=== PATIENT | female | born 1975 | race Caucasian/White ===

== ENCOUNTER 2016-06-03 15:57 | Emergency (ER) | payer OTHER ==
[2016-06-03] MEDS ORDERED: IPRATROPIUM-ALBUTEROL 3 ML NEB INHALATION STA (16:54)
--- NOTE | 2016-06-03 17:08 | XR ---
EXAMINATION TYPE: XR chest 2V DATE OF EXAM: 06/03/2016 5:00 PM COMPARISON: 07/17/2015 HISTORY: Cough TECHNIQUE: Frontal and lateral views of the chest are obtained. FINDINGS: Heart and mediastinum are normal. Lungs are clear. Diaphragm is normal. Bony thorax is int act. IMPRESSION: Normal chest. No change.
--- NOTE | 2016-06-03 17:21 | ED ---
URI HPI - General Chief Complaint: Upper Respiratory Infection Stated Complaint: COPD Time Seen by Provider: 06/03/16 16:48 Source: patient, RN notes reviewed Mode of arrival: ambulatory Limitations: no limitations - History of Present Illness Initial Comments: 40-year-old female presented emergency department for cough and congestion. Patient has known COPD continues to smoke heavily. Patient states that she's been having worsening cough. Patient states that it is exacerbated by her smoking. Patient denies any chest pain or palpitations. Patient states she has inhalers and nebulizer but she has not been using her nebulizer. Patient denies any known fever or chills. Denies any sinus congestion, sore throat. Patient states that she's had no sick contacts. Patient offers no complaints. - Related Data Home Medications Medication Instructions Recorded Confirmed Albuterol Nebulized [Ventolin 2.5 mg INHALATION RT-TID PRN 08/06/13 06/03/16 Nebulized] Ipratropium [place] [Atrovent Hfa] 2 puff INHALATION RT-QID PRN 06/03/16 Previous Rx's Medication Instructions Recorded Albuterol Nebulized [Ventolin 2.5 mg INHALATION Q4H PRN #25 nebu 06/03/16 Nebulized] Azithromycin [Zithromax Z-pack] 0 mg PO DIRECTED #1 pack 06/03/16 methylPREDNISolone [Medrol Dose 4 mg PO DIRECTED #1 pack 06/03/16 Pack] Allergies Allergy/AdvReac Type Severity Reaction Status Date / Time sulfamethoxazole Allergy Unknown Verified 06/03/16 17:12 [From Bactrim] Childhood trimethoprim [From Bactrim] Allergy Unknown Verified 06/03/16 17:12 Childhood Review of Systems ROS Statement: Those systems with pertinent positive or pertinent negative responses have been documented in the HPI. ROS Other: All systems not noted in ROS Statement are negative. Past Medical History Past Medical History: COPD Additional Past Medical History / Comment(s): bipolar, sciatica, arthritis History of Any Multi-Drug Resistant Organisms: None Reported Past Surgical History: Bladder Surgery, Orthopedic Surgery Past Psychological History: Bipolar, Depression Smoking Status: Current every day smoker Past Alcohol Use History: Occasional Past Drug Use History: Marijuana General Exam Limitations: no limitations General appearance: alert, in no apparent distress Head exam: Present: atraumatic, normocephalic, normal inspection Eye exam: Present: normal appearance, PERRL, EOMI. Absent: scleral icterus, conjunctival injection, periorbital swelling ENT exam: Present: normal exam, normal oropharynx, mucous membranes moist, TM's normal bilaterally, normal external ear exam Neck exam: Present: normal inspection, full ROM. Absent: tenderness, meningismus, lymphadenopathy Respiratory exam: Present: wheezes. Absent: normal lung sounds bilaterally, respiratory distress, rales, rhonchi, stridor Cardiovascular Exam: Present: regular rate, normal rhythm, normal heart sounds. Absent: systolic murmur, diastolic murmur, rubs, gallop, clicks Course Vital Signs 06/03/16 06/03/16 16:44 17:13 Temperature 97.9 F Pulse Rate 87 88 Respiratory 20 Rate Blood Pressure 135/81 O2 Sat by Pulse 99 Oximetry Medical Decision Making - Medical Decision Making 40-year-old female presented emergency department for cough and congestion. Patient has COPD. Patient was treated with azithromycin this time, steroids. She was advised to quit smoking counseled in detail greater than 3 minutes and she really advised to continue helping all treatments at home. Return parameters were discussed. Disposition Clinical Impression: COPD exacerbation Disposition: HOME SELF-CARE Condition: Stable Instructions: COPD (Chronic Obstructive Pulmonary Disease) (ED) Additional Instructions: Please return to the Emergency Department if symptoms worsen or any other concerns. Prescriptions: Albuterol Nebulized [Ventolin Nebulized] 2.5 mg INHALATION Q4H PRN #25 nebu PRN Reason: difficulty in breathing Azithromycin [Zithromax Z-pack] 0 mg PO DIRECTED #1 pack methylPREDNISolone [Medrol Dose Pack] 4 mg PO DIRECTED #1 pack Time of Disposition: 17:20
[2016-06-03 17:43] VITALS: BP 161/74; PULSE 100; RESP 16; TEMP 97.2
== END 2016-06-03 17:42 | disposition home or self-care (01) ==
LOC: EC 15:57
DX: J44.1 Chronic obstructive pulmonary disease with (acute) exacerbation (principal); F17.200 Nicotine dependence, unspecified, uncomplicated; Z88.2 Allergy status to sulfonamides
CPT/HCPCS: 71020; 94640; 99283

== ENCOUNTER → 2017-05-21 | Outpatient (CLI) | payer OTHER ==
--- NOTE | 2017-05-21 14:09 | US ---
EXAMINATION TYPE: US pelvic complete DATE OF EXAM: 05/21/2017 COMPARISON: NONE CLINICAL HISTORY: N92.0 Menorrhagia. Pelvic pain. TECHNIQUE: . Transabdominal sonographic images of the pelvis were acquired. Patient declined the tr ansvaginal ultrasound at this time Date of LMP: 2 weeks ago EXAM MEASUREMENTS: Uterus: 9.1 x 4.0 x 6.0 cm Endometrial Stripe: 1.1 cm Right Ovary: Not visualized on this exam due to overlying bowel gas Left Ovary: Not visualized due to overlying bowel gas 1. Uterus: Anteverted No obvious abnormality is visualized, however extremely limited due to overl delmy bowel gas. Patient declined transvaginal imaging at this time. 2. Endometrium: wnl as visualized 3. Right Ovary: Obscured by overlying bowel gas 4. Left Ovary: Obscured by overlying bowel gas 5. Bilateral Adnexa: wnl 6. Posterior cul-de-sac: wnl IMPRESSION: Endometrial thickness is within normal limits for a premenopausal female. Uterus is also unremarkable in the transabdominal images. Ovaries are nonvisualized and patient declined a transvagi nal ultrasound.
== END | disposition home or self-care (01) ==
LOC: RADUSWWP 13:42
PROVIDERS: ATTEND Internal Medicine
DX: N92.0 Excessive and frequent menstruation with regular cycle (principal)
CPT/HCPCS: 76856

== ENCOUNTER → 2017-11-20 | Outpatient (CLI) | payer OTHER | END | disposition home or self-care (01) | LOC: RADMRIMAIN 12:10 | PROVIDERS: ATTEND Psychiatry & Neurology Pain Medicine | DX: Z53.9 Procedure and treatment not carried out, unspecified reason (principal) ==

== ENCOUNTER → 2020-04-11 | Outpatient (CLI) | payer OTHER ==
[2020-04-11 22:11] LABS: Cyclic Citrull Pep IgG Unit <0.5 U/mL; Cyclic Citrullinated Pep IgG NEGATIVE (NEGATIVE)
== END | disposition home or self-care (01) ==
LOC: LABWHC1 14:03
PROVIDERS: ATTEND Internal Medicine
DX: G89.4 Chronic pain syndrome (principal)
CPT/HCPCS: 36415; 85652; 86038; 86200; 86431

== ENCOUNTER 2021-12-31 10:44 | Day surgery (SDC) | payer OTHER ==
[2021-12-26 16:15] VITALS: BMI 47.4
[~2021-12-31 10:44] MED LIST: ceFAZolin 3 GM in SODIUM CHLORIDE 0.9% 100 ML IVPB PRN
[2021-12-31 11:21] VITALS: TEMP 97.1
[2021-12-31] MEDS ORDERED: LACTATED RINGERS 1,000 ML IV ONE ×2 (11:35→14:33)
[2021-12-31] MEDS ORDERED: LIDOCAINE 1% (10MG/ML) FOR IV START INTRADERMA ONE (11:36)
[2021-12-31] MEDS ORDERED: ONDANSETRON 4 MG/2 ML VIAL ONE ×2 (11:40→16:12)
[2021-12-31] MEDS ORDERED: ONDANSETRON 4 MG/2 ML VIAL IVP ONE ×2 (11:43→16:00)
[2021-12-31] MEDS ORDERED: DEXAMETHASONE SOD PHOSPHATE 4 MG/ML 1 ML VIAL IV ONE (11:44)
[2021-12-31] MEDS ORDERED: MIDAZOLAM 2 MG/2 ML VIAL IVP ONE (11:49)
[2021-12-31] MEDS ORDERED: fentaNYL (PF) 50 MCG/ML 2 ML AMP IVP ONE (11:49)
--- NOTE | 2021-12-31 11:59 | P.ANPRN ---
Procedure Note - Anesthesia - Nerve Block Performed Left Supraclavicular Single Time Out Performed: Yes Date of Procedure: 12/31/21 Procedure Start Time: 11:48 Procedure Stop Time: 11:56 Location of Patient: PreOp Sedation Type: Sedate with meaningful contact maintained Preparation: Sterile Prep Position: Supine Needle Types: Pajunk Needle Gauge: 21 Ultrasound used to visualize needle placement: Yes Ultrasound used to observe medication spread: Yes Injectate: 0.5% Ropivacaine (see comment for volume) (25 ml +4 mg Dexamethasone) Blood Aspirated: No Pain Paresthesia on Injection Noted: No Resistance on Injection: Normal Image Stored and Saved: Yes Events: Uneventful and Well Tolerated
[2021-12-31] MEDS ORDERED: PROPOFOL 10 MG/ML 20 ML VIAL IV ONE (13:12)
[2021-12-31] MEDS ORDERED: SUCCINYLCHOLINE CHLORIDE 200 MG/10 ML VIAL IV ONE (13:12)
[2021-12-31] MEDS ORDERED: ROCURONIUM 10 MG/ML (5 ML VIAL) IV ONE (13:12)
[2021-12-31] MEDS ORDERED: fentaNYL (PF) 50 MCG/ML 50 ML VIAL ONE (13:12)
[2021-12-31] MEDS ORDERED: ROPIVACAINE 5 MG/ML 30 ML VIAL ONE (13:12)
[2021-12-31] MEDS ORDERED: DEXAMETHASONE SOD PHOSPHATE 4 MG/ML 1 ML VIAL ONE (13:12)
[2021-12-31] MEDS ORDERED: LIDOCAINE 2% INJ 20 MG/ML (2 ML VIAL) ONE (13:12)
[2021-12-31] MEDS ORDERED: MIDAZOLAM 2 MG/2 ML VIAL ONE (13:12)
[2021-12-31] MEDS ORDERED: LIDOCAINE 1% INJ 10MG/ML (5 ML VIAL-PF) SQ ONE (13:59)
[2021-12-31] MEDS ORDERED: methylPREDNISolone ACETATE 40 MG/ML 1 ML VIAL MISCELLANE ONE (14:01)
[2021-12-31] MEDS ORDERED: GELATIN SPONGE,ABSORB (SMALL) 1 EACH SPONGE MISCELLANE ONE (14:07)
[2021-12-31 15:37] VITALS: RESP 20
[2021-12-31 16:10] VITALS: BP 129/85; PULSE 90
== END 2021-12-31 16:43 | disposition home or self-care (01) ==
LOC: OR 10:44
PROVIDERS: ATTEND Orthopaedic Surgery Hand Surgery
DX: G89.18 Other acute postprocedural pain (principal); J45.909 Unspecified asthma, uncomplicated; M19.90 Unspecified osteoarthritis, unspecified site; E66.9 Obesity, unspecified; Z68.42 Body mass index [BMI] 45.0-49.9, adult; Z88.2 Allergy status to sulfonamides
CPT/HCPCS: 81025; 64415; 76942; J2250; J0330; J1030; J1100; J3010 ×2; J0690; J2405; J2001 ×2; J2795; J2704

== ENCOUNTER → 2022-05-28 | Outpatient (CLI) | payer OTHER ==
--- NOTE | 2022-05-30 07:55 | MM ---
Reason for Exam: Screening (asymptomatic). Baseline mammogram. Patient History: Menarche at age 12. First Full-Term at age 15. Premenopausal. Maternal grandmother had breast cancer at or over age 50. Mother had ovarian cancer at or over age 50. Last menstrual period: 05/22/2022 Risk Values: Melody 5 year model risk: 0.6%. Prior Study Comparison: Patient's first Mammogram. No prior studies available for comparison. Tissue Density: There are scattered fibroglandular densities. Findings: Analyzed By CAD. Pattern appears symmetrical. No suspicious groups of microcalcifications, spiculated or lobular masses, architectural distortion or other secondary signs of malignancy are mammographically apparent.Pattern appears symmetrical. There is a nodule within the upper outer aspect right breast measuring 1.9 x 1.3 cm located 12 cm from the nipple. Overall Assessment: Incomplete: need additional imaging evaluation, BI-RAD 0 Management: Diagnostic Breast Ultrasound of the right breast. A negative mammogram report should not preclude additional follow up of suspicious palpable abnormalities. Patient should continue monthly self breast exam. A clinical breast exam by your physician is recommended on an annual basis and results should be correlated with mammographic findings. Electronically signed and approved by: Des Allen D.O. Radiologis
== END | disposition home or self-care (01) ==
LOC: RADMAMWWP 13:19
PROVIDERS: ATTEND Family Medicine
DX: Z12.31 Encounter for screening mammogram for malignant neoplasm of breast (principal); Z80.3 Family history of malignant neoplasm of breast
CPT/HCPCS: 77063; 77067

== ENCOUNTER → 2022-06-18 | Outpatient (CLI) | payer OTHER ==
--- NOTE | 2022-06-18 14:05 | USB ---
Reason for Exam: Additional evaluation requested from abnormal screening. Patient History: Menarche at age 12. First Full-Term at age 15. Premenopausal. Maternal grandmother had breast cancer at or over age 50. Mother had ovarian cancer at or over age 50. Risk Values: Melody 5 year model risk: 0.6%. NCI Lifetime model risk: 6.8%. Technique: Method: Targeted. Patient Position: Supine. Prior Study Comparison: 05/28/2022 Bilateral MG 3D screening mammo w/cad, [facility]. Findings: The upper outer quadrant of the right breast and the axilla of the right breast were scanned. Targeted ultrasound shows 1.6 x 0.7 x 1.3 cm benign lymph node in the right breast 10:00 position 13 cm distance from nipple believed to correspond to mammogram abnormality. Overall Assessment: Benign, BI-RAD 2 Management: Screening Mammogram of both breasts in 1 year. Return to routine follow-up. Results were given to the patient verbally at the time of exam. Electronically signed and approved by: Camilo Knight M.D.
== END | disposition home or self-care (01) ==
LOC: RADUSWWP 13:24
PROVIDERS: ATTEND Family Medicine
DX: R92.8 Other abnormal and inconclusive findings on diagnostic imaging of breast (principal); Z80.3 Family history of malignant neoplasm of breast

== ENCOUNTER → 2022-11-20 | Outpatient (CLI) | payer OTHER ==
--- NOTE | 2022-11-20 19:06 | CT ---
EXAMINATION TYPE: CT cervical spine wo con CT DLP: 720.2 mGycm, Automated exposure control for dose reduction was used. DATE OF EXAM: 11/20/2022 3:23 PM COMPARISON: None. CLINICAL INDICATION:Female, 47 years old with history of N92.0 EXCESSIVE AND FREQUENT MENSTR M54.50 , M54.12; PHH, limited range of motion and chronic neck pain x 5 years TECHNIQUE: Axial CT images from the skull base to the inferior aspect of T2 we obtained without intra venous contrast. Coronal and sagittal reformatted images were also reviewed. Contrast used: mL of , (if blank None) Oral contrast used: (if blank None) FINDINGS: Fracture: None. Osseous structures: Minimal degenerative disc disease changes with endplate spurring and disc osteoph yte complex's. Vertebral alignment: Alignment within normal limits. Spinal canal/Neural Foramina: No evidence of significant spinal canal narrowing. No evidence for sign ificant neural foraminal stenosis. Neck soft tissues: Prevertebral soft tissues are within normal limits. Other: The airway is patent. The lung apices are clear. IMPRESSION: 1. No evidence of cervical spine fracture. 2. Minimal multilevel degenerative disc disease.
--- NOTE | 2022-11-20 19:08 | CT ---
EXAMINATION TYPE: CT lumbar spine wo con CT DLP: 1350.3 mGycm, Automated exposure control for dose reduction was used. DATE OF EXAM: 11/20/2022 3:23 PM COMPARISON: . CLINICAL INDICATION:Female, 47 years old with history of N92.0 EXCESSIVE AND FREQUENT MENSTR M54.50 , M54.12; PHH, chronic back pain that radiates down sides x 5 years TECHNIQUE: Multiple axial images were obtained from the midportion of T11 through the sacroiliac akshat nts. Soft tissue and bone windows in coronal and sagittal planes were obtained and reviewed. Contrast used: mL of , none. Oral contrast used: none. FINDINGS: Alignment: There are 5 lumbar type vertebral bodies within normal alignment. Bone: No evidence of fracture is identified. Scattered mild osteophyte formation with disc space shona rowing worse at L5-S1. Facet joint arthropathy seen throughout the spine worse at L5-S1. Discs: T12-L1: No spinal canal or neural foraminal stenosis is identified. L1-L2: No spinal canal or neural foraminal stenosis is identified. L2-L3: No spinal canal or neural foraminal stenosis is identified. L3-L4: No spinal canal or neural foraminal stenosis is identified. L4-L5: Facet joint arthropathy and disc bulging result with mild spinal canal stenosis and moderate b ilateral neural foraminal stenosis. L5-S1: Facet joint arthropathy and disc bulging result without significant spinal canal stenosis and moderate bilateral neural foraminal stenosis. Other: None IMPRESSION: 1. No evidence for spinal fracture. 2. Mild degeneration changes throughout the spine worse at L5-S1 with moderate neural foraminal steno sis.
--- NOTE | 2022-11-20 19:47 | US ---
EXAMINATION TYPE: US pelvis complete transvag DATE OF EXAM: 11/20/2022 COMPARISON: NONE CLINICAL INDICATION: Female, 47 years old with history of N92.0 EXCESSIVE AND FREQUENT MENSTR; Irregu lar menses. LMP was 3 weeks long with clots TECHNIQUE: Transvaginal (TV) and Transabdominal (TA) . Transabdominal sonographic images of the pel vis were acquired. Transvaginal sonographic images were medically necessary to better assess the fol lowing anatomy: ovaries Date of LMP: August 2022 EXAM MEASUREMENTS: Uterus: 8.4 x 5.4 x 8.2 cm Endometrial Stripe: 0.5 cm Right Ovary: unable to visualize Left Ovary: unable to visualize 1. Uterus: Anteverted Fibroids noted, largest = 5.4 x 4.6 x 4.8cm. possible pedunculated fibroid = 2.7 x 2.7 x 3.2cm 2. Endometrium: appears wnl 3. Right Ovary: Obscured by overlying bowel gas 4. Left Ovary: Obscured by overlying bowel gas 5. Bilateral Adnexa: appears wnl 6. Posterior cul-de-sac: wnl IMPRESSION: 1. Uterine fibroids as discussed above.
== END | disposition home or self-care (01) ==
LOC: RADCTMAIN 14:52
PROVIDERS: ATTEND Family Medicine
DX: M50.10 Cervical disc disorder with radiculopathy, unspecified cervical region (principal); M51.17 Intervertebral disc disorders with radiculopathy, lumbosacral region; M99.73 Connective tissue and disc stenosis of intervertebral foramina of lumbar region; D25.9 Leiomyoma of uterus, unspecified; N92.0 Excessive and frequent menstruation with regular cycle
CPT/HCPCS: 72125; 72131; 76830; 76856

== ENCOUNTER → 2023-03-04 | Outpatient (CLI) | payer OTHER ==
--- NOTE | 2023-03-04 14:42 | XR ---
EXAMINATION TYPE: XR chest 2V DATE OF EXAM: 03/04/2023 COMPARISON: 06/03/2016 INDICATION: COPD, asthma TECHNIQUE: Frontal and lateral views of the chest are obtained. FINDINGS: The heart size is normal. The pulmonary vasculature is normal. The lungs are clear. IMPRESSION: 1. No acute pulmonary process.
== END ==
LOC: CPPFTMAIN 12:44
PROVIDERS: ATTEND Family Medicine
DX: J44.89 Other specified chronic obstructive pulmonary disease (principal); J45.998 Other asthma; M12.9 Arthropathy, unspecified; D72.829 Elevated white blood cell count, unspecified; F17.200 Nicotine dependence, unspecified, uncomplicated; F12.90 Cannabis use, unspecified, uncomplicated; Z88.2 Allergy status to sulfonamides; Z88.1 Allergy status to other antibiotic agents; Z79.899 Other long term (current) drug therapy
CPT/HCPCS: 71046; 94060; 94726; 94729

== ENCOUNTER 2023-04-28 10:53 | Day surgery (SDC) | payer OTHER ==
[2023-04-23 13:08] VITALS: BMI 37.9
[~2023-04-28 10:53] MED LIST changes: +HYDROmorphone 0.5 MG/0.5 ML SYRINGE IVP PRN; +LIDOCAINE 1% (10MG/ML) FOR IV START INTRADERMA PRN; +MIDAZOLAM 2 MG/2 ML VIAL IV PRN; +Pre Op ABX Message 1 EACH MISC MISCELLANE ONE; -ceFAZolin 3 GM in SODIUM CHLORIDE 0.9% 100 ML IVPB PRN
[2023-04-28] MEDS: LACTATED RINGERS 1,000 ML IV SCH (11:19)
[2023-04-28] MEDS: DEXAMETHASONE SOD PHOSPHATE 4 MG/ML 1 ML VIAL IV ONE (11:37)
[2023-04-28] MEDS: ONDANSETRON 4 MG/2 ML VIAL IVP ONE (11:37)
[2023-04-28 11:38] VITALS: TEMP 96.9
[2023-04-28] MEDS ORDERED: MIDAZOLAM 2 MG/2 ML VIAL ONE (12:31)
[2023-04-28] MEDS ORDERED: fentaNYL (PF) 50 MCG/ML 2 ML AMP ONE (12:31)
[2023-04-28] MEDS ORDERED: LIDOCAINE 1% INJ 10MG/ML (20 ML MDV) ONE (12:31)
[2023-04-28] MEDS ORDERED: PROPOFOL 10 MG/ML 20 ML VIAL IV ONE (12:31)
[2023-04-28] MEDS: LIDOCAINE 2%-EPI 1:100,000 20 ML VIAL SQ ONE (12:41)
[2023-04-28] MEDS: BUPIVACAINE (PF) 0.5% 30 ML VIAL SQ ONE (12:41)
[2023-04-28 13:38] VITALS: BP 114/70; PULSE 55; RESP 16
--- NOTE | 2023-04-28 16:41 | P.OP ---
Date of Procedure: 04/28/23 Preoperative Diagnosis: left carpal tunnel syndrome Postoperative Diagnosis: same Procedure(s) Performed: Left endoscopic carpal tunnel release Anesthesia: MAC, local Surgeon: Karrie Enriquez Estimated Blood Loss (ml): 0 Condition: stable Disposition: PACU Indications for Procedure: Patient has noticed numbness and tingling in her median nerve distribution. She has a history of carpal tunnel syndrome on EMG many years ago. She is not having trouble sleeping. She would like to proceed with endoscopic carpal tunnel release Description of Procedure: The patient, operative extremity, and procedure were identified in the preoperative holding area. After informed consent was obtained, the patient was then brought back to the operating room where a local block was performed with lidocaine with epinephrine and 0.5% marcaine. The extremity was then prepped and draped in normal sterile fashion with a tourniquet on the patients brachium. A formal timeout was performed and the tourniquet was inflated to 250mmHg. A transverse incision was made just ulnar to the palmaris longus tendon. Dissection was taken down to the forearm fascia. This is released proximally about a centimeter. The incision was utilized to access the carpal tunnel with the scraping tool and serial dilators. When the microair device was inserted, the transverse carpal ligament was well isolated without any aberrant soft tissue visible. Under direct visualization, the cutting tool was used to transect the transverse carpal ligament in its entirety. The release was confirmed visually with the arthroscope and also by palpation with the dilator tool. Tourniquet was then let down, hemostasis was achieved and the wound was closed with skin glue and steristrips. Wound was dressed with telfa and tegaderm. Patient was aroused by the anesthesia team and brought back to PACU in stable condition.
== END 2023-04-28 13:50 | disposition home or self-care (01) ==
LOC: OR 10:53
PROVIDERS: ATTEND Orthopaedic Surgery Hand Surgery
DX: G56.02 Carpal tunnel syndrome, left upper limb (principal); J44.9 Chronic obstructive pulmonary disease, unspecified; F17.210 Nicotine dependence, cigarettes, uncomplicated; F32.A Depression, unspecified; K21.9 Gastro-esophageal reflux disease without esophagitis; Z88.5 Allergy status to narcotic agent; Z79.899 Other long term (current) drug therapy; Z82.49 Family history of ischemic heart disease and other diseases of the circulatory system; Z88.2 Allergy status to sulfonamides
CPT/HCPCS: 81025; 29848; J2250; J1100; J2405; J2001; J3010; J2704; J0665

== ENCOUNTER → 2023-07-17 | Outpatient (CLI) | payer OTHER ==
--- NOTE | 2023-07-20 19:39 | MM ---
Reason for Exam: Screening (asymptomatic). Last mammogram was performed 1 year(s) and 2 month(s) ago. Patient History: Menarche at age 12. First Full-Term at age 15. Postmenopausal. Maternal grandmother had breast cancer at or over age 50. Mother had ovarian cancer at or over age 50. Risk Values: Melody 5 year model risk: 0.7%. NCI Lifetime model risk: 6.7%. Prior Study Comparison: 05/28/2022 Bilateral MG 3D screening mammo w/cad, [facility]. Tissue Density: There are scattered areas of fibroglandular density. Findings: Analyzed By CAD. Chronic nodularity posterior upper outer quadrant right breast. There is no suspicious group of microcalcifications or new suspicious mass in either breast. Overall Assessment: Benign, BI-RAD 2 Management: Screening Mammogram of both breasts in 1 year. . Patient should continue monthly self-breast exams. A clinical breast exam by your physician is recommended on an annual basis. This exam should not preclude additional follow-up of suspicious palpable abnormalities. Note on Melody scores and lifetime risk: 1. A Melody score greater than 3% is considered moderate risk. If this is the case, consider specialist referral to assess eligibility for a risk reducing agent. 2. If overall lifetime risk for the development of breast cancer is 20% or higher, the patient may qualify for future screening with alternating mammogram and breast MRI. Electronically signed and approved by: Beau Kidd M.D. Radiologist
== END | disposition home or self-care (01) ==
LOC: RADMAMWWP 13:16
PROVIDERS: ATTEND Family Medicine
DX: Z12.31 Encounter for screening mammogram for malignant neoplasm of breast (principal); Z80.3 Family history of malignant neoplasm of breast; Z78.0 Asymptomatic menopausal state
CPT/HCPCS: 77063; 77067

== ENCOUNTER → 2023-07-21 | Outpatient (CLI) | payer OTHER ==
--- NOTE | 2023-07-22 11:59 | CA ---
Transthoracic Echo Report Name: Therese Castellon Age: 47 Gender: F : 1975 Exam Date: 07/21/2023 15:43 Exam Location: [facility] [facility] Ht (in): 66 Wt (lb): 235 Ordering Physician: Suman Ramires MD Attending/Referring Phys: Maribeth Torres PAC Assurance Manager Insurance Reena Snyder RDCS Procedure CPT: Indications: R07.89 other chest pain Cardiac Hx: Technical Quality: Fair Contrast 1: Total Dose (mL): Contrast 2: Total Dose (mL): MEASUREMENTS (Male / Female) Normal Values 2D ECHO LV Diastolic Diameter PLAX 3.6 cm 4.2 - 5.9 / 3.9 - 5.3 cm LV Systolic Diameter PLAX 2.3 cm IVS Diastolic Thickness 1.3 cm 0.6 - 1.0 / 0.6 - 0.9 cm LVPW Diastolic Thickness 1.5 cm 0.6 - 1.0 / 0.6 - 0.9 cm LV Relative Wall Thickness 0.8 RV Internal Dim ED PLAX 3.9 cm LA Volume 46.7 cm??? 18 - 58 / 22 - 52 cm??? LA Volume Index 20.5 cm???/m??? 16 - 28 cm???/m??? M-MODE Aortic Root Diameter MM 2.9 cm LA Systolic Diameter MM 3.6 cm LA Ao Ratio MM 1.2 AV Cusp Separation MM 1.6 cm DOPPLER AV Peak Velocity 121.1 cm/s AV Peak Gradient 5.9 mmHg AV Mean Velocity 73.6 cm/s AV Mean Gradient 2.6 mmHg AV Velocity Time Integral 20.7 cm LVOT Peak Velocity 113.3 cm/s LVOT Peak Gradient 5.1 mmHg LVOT Velocity Time Integral 21.2 cm MV Area PHT 4.4 cm??? Mitral E Point Velocity 64.8 cm/s Mitral A Point Velocity 72.2 cm/s Mitral E to A Ratio 0.9 MV Deceleration Time 173.1 ms MV E' Velocity 10.0 cm/s Mitral E to MV E' Ratio 6.5 TR Peak Velocity 162.2 cm/s TR Peak Gradient 10.5 mmHg Right Ventricular Systolic Press 15.5 mmHg FINDINGS Left Ventricle Moderately increased left ventricular wall thickness. Left ventricular cavity size normal. Normal left ventricular systolic function with no obvious regional wall motion abnormalities. Left ventricular ejection fraction is estimated at 55-60 %. Grade 1 diastolic dysfunction. Right Ventricle Right ventricular dilatation. Right ventricular systolic pressure within normal limits. Right Atrium Normal right atrial size. Left Atrium Normal left atrial size. Mitral Valve Structurally normal mitral valve. Mild mitral annular calcification. Trace mitral regurgitation. Aortic Valve Trileaflet aortic valve. No aortic valve stenosis or regurgitation. Tricuspid Valve Structurally normal tricuspid valve. Mild tricuspid regurgitation. Pulmonic Valve Structurally normal pulmonic valve. Pericardium No pericardial effusion. Aorta Normal size aortic root and proximal ascending aorta. CONCLUSIONS Left anterior ejection fraction 55-60% Moderately increased left ventricular wall thickness Trace mitral regurgitation Mild mitral annular calcification Mild tricuspid regurgitation RVSP 15 Previewed by: Dr. Elieser Jones DO (Electronically Signed) Final Date: 22 Jul 2023 11:58
== END | disposition home or self-care (01) ==
LOC: RADECHMAIN 15:39
PROVIDERS: ATTEND Family Medicine
DX: I08.1 Rheumatic disorders of both mitral and tricuspid valves (principal)
CPT/HCPCS: 93306

== ENCOUNTER → 2024-09-21 | Outpatient (CLI) | payer OTHER ==
--- NOTE | 2024-09-22 08:22 | MM ---
Reason for Exam: Screening (asymptomatic). Last mammogram was performed 1 year(s) and 2 month(s) ago. Patient History: Menarche at age 12. First Full-Term at age 15. Postmenopausal. Maternal grandmother had breast cancer at or over age 50. Mother had ovarian cancer at or over age 50. Risk Values: Melody 5 year model risk: 0.7%. NCI Lifetime model risk: 6.6%. Prior Study Comparison: 05/28/2022 Bilateral MG 3D screening mammo w/cad, [facility]. 07/17/2023 Bilateral MG 3D screening mammo w/cad, [facility]. Tissue Density: There are scattered areas of fibroglandular density. Findings: Analyzed By CAD. Right breast: Stable right upper outer quadrant nodular asymmetry probable lymph node. There is no suspicious group of microcalcifications or new suspicious mass. Left breast: There is no suspicious group of microcalcifications or new suspicious mass. Overall Assessment: Benign, BI-RAD 2 Management: Screening Mammogram of both breasts in [address] [facility] will attempt to contact patient to return for supplemental views and ultrasound if indicated. Patient should continue monthly self-breast exams. A clinical breast exam by your physician is recommended on an annual basis. This exam should not preclude additional follow-up of suspicious palpable abnormalities. Note on Melody scores and lifetime risk: 1. A Melody score greater than 3% is considered moderate risk. If this is the case, consider specialist referral to assess eligibility for a risk reducing agent. 2. If overall lifetime risk for the development of breast cancer is 20% or higher, the patient may qualify for future screening with alternating mammogram and breast MRI. [facility], , 09/22/2024 8:19 AM. Electronically signed and approved by: Jayson Malone DO
== END | disposition home or self-care (01) ==
LOC: RADMAMWWP 15:47
PROVIDERS: ATTEND Family Medicine
DX: Z12.31 Encounter for screening mammogram for malignant neoplasm of breast (principal); R92.323 Mammographic fibroglandular density, bilateral breasts; Z78.0 Asymptomatic menopausal state; Z80.3 Family history of malignant neoplasm of breast
CPT/HCPCS: 77063; 77067